=== PATIENT | female | born 2000 | race African-American/Black ===

== ENCOUNTER 2019-03-11 05:37 | Emergency (ER) | payer OTHER, MEDICAID ==
[~2019-03-11] VITALS: Ht 165.1 cm; Wt 60.3 kg
[2019-03-11 05:47] VITALS: BP 126/70
[2019-03-11 05:50] LABS: URINE BILIRUBIN NEGATIVE (Negative); URINE BLOOD NEGATIVE (Negative); URINE CLARITY CLEAR; URINE COLOR YELLOW; URINE GLUCOSE-RANDOM NEGATIVE (Negative); URINE KETONES NEGATIVE (Negative); URINE LEUKOCYTES-REFLEX 1+ (Negative); URINE NITRITE-REFLEX NEGATIVE (Negative); URINE PROTEIN NEGATIVE (Negative); URINE SPECIFIC GRAVITY >= 1.030 (1.005-1.030); URINE UROBILINOGEN 0.2 E.U./dl (0.2-1.0)
[2019-03-11] MEDS ORDERED: ULTRAM 50MG TAB50 MG PO (05:56)
[2019-03-11 06:01] LABS: BACTERIA-REFLEX 1-9 Few /HPF (None Seen); MUCUS 4-6 Moderate strn/LPF (None Seen); SQUAMOUS >10 Many /LPF (0-3); URINE RBC 3-10 Few /HPF (0-2); URINE WBC-REFLEX 6-15 Few /HPF (0-5)
[2019-03-11 06:02] LABS: CASTS None Seen /LPF (None Seen); CRYSTALS None Seen /LPF (None Seen)
== END 2019-03-11 06:04 | disposition home or self-care (01) ==
LOC: M.ERS 05:37
PROVIDERS: Family Medicine
DX: M54.5 Low back pain (principal)